=== PATIENT | female | born 1970 | race Caucasian/White ===

== ENCOUNTER → 2016-11-26 | Outpatient (CLI) | payer OTHER ==
--- NOTE | 2016-11-26 09:18 | CPEKG ---
Heart Rate: 74 RR Interval: 811 P-R Interval: 188 QRSD Interval: 88 QT Interval: 388 QTC Interval: 431 P [place]: 65 QRS [place]: 68 T Wave [place]: 55 EKG Severity - NORMAL ECG - EKG Impression: SINUS RHYTHM Electronically Signed By: Fletcher Loera 26-Nov-2016 12:22:33
== END ==
LOC: FCP 09:08
PROVIDERS: ATTEND Family Medicine
DX: Q65.89 Other specified congenital deformities of hip (principal)